=== PATIENT | male | born 1990 | race American Indian/Alaskan Native ===

== ENCOUNTER 2021-10-08 11:43 | Emergency (ER) | payer MEDICAID ==
[2021-10-08 12:06] VITALS: BP 159/109; PULSE 112
[2021-10-08] MEDS ORDERED: Sodium Chloride 0.9% 1,000 ML IV SCH (12:30)
[2021-10-08] MEDS ORDERED: fentaNYL 100 MCG/2 ML SDV IVPUSH ONE ×2 (12:32→14:26)
[2021-10-08] MEDS ORDERED: Diphtheria,Pertussis(Acell),Tetanus Vaccine 0.5 ML Syringe IM ONE (12:32)
[2021-10-08 12:36] LABS: ANION GAP 15.9 mEq/L (7-13); CHLORIDE,CL 100 mmol/L (98-107); SODIUM,NA 134 mmol/L (136-145)
[2021-10-08] MEDS ORDERED: Bacitracin Oint 1 GM U/D Packet TOP ONE (13:21)
[2021-10-08 13:32] LABS: AMPHETAMINES,URINE POSITIVE (NEGATIVE); BARBITURATES,URINE NEGATIVE (NEGATIVE); BENZODIAZEPINE,URINE NEGATIVE (NEGATIVE); MDMA (ECSTASY), URINE POSITIVE (NEGATIVE); METHADONE,URINE NEGATIVE (NEGATIVE); METHAMPHETAMINES,URINE POSITIVE (NEGATIVE); OPIATES,URINE NEGATIVE (NEGATIVE); OXYCODONE,URINE POSITIVE (NEGATIVE); PHENCYCLIDINE,URINE NEGATIVE (NEGATIVE); TCA,URINE NEGATIVE (NEGATIVE)
[2021-10-08 13:45] LABS: CORONAVIRUS COVID-19 NAA NEGATIVE (NEGATIVE)
== END 2021-10-08 14:33 ==
LOC: DL.ED 11:43
DX: T33.522A Superficial frostbite of left hand, initial encounter (principal); T33.521A Superficial frostbite of right hand, initial encounter; Z23 Encounter for immunization; Z20.822 Contact with and (suspected) exposure to COVID-19; X31.XXXA Exposure to excessive natural cold, initial encounter
CPT/HCPCS: 0240U; 36415; 80053; 80305; 81001; 85025; 90471; 90715; 96374; 96376; 99285; J3010; J7030

== ENCOUNTER 2025-05-12 19:35 | Emergency (ER) | payer MEDICAID ==
[2025-05-12] MEDS: Bacitracin Oint 1 GM U/D Packet TOP ONE (22:06)
[2025-05-12 22:30] VITALS: BP 117/87; PULSE 108
== END 2025-05-12 22:15 | disposition home or self-care (01) ==
LOC: DL.ED 19:35
DX: S51.812A Laceration without foreign body of left forearm, initial encounter (principal); W25.XXXA Contact with sharp glass, initial encounter; Y93.89 Activity, other specified
CPT/HCPCS: 12004; 99282; 99283; A9270